=== PATIENT | female | born 1975 | race Caucasian/White ===

== ENCOUNTER 2016-12-17 19:54 | Emergency (ER) | payer SELFPAY ==
[~2016-12-17] VITALS: Ht 149.9 cm; Wt 52.2 kg
[2016-12-17] MEDS ORDERED: IV NS 0.9% 1,000 ML ONE ×2 (19:59→20:06)
[2016-12-17] MEDS ORDERED: IV SET PRIMARY 1 EA INFUS.SET MC ONE ×2 (19:59→20:06)
--- NOTE | 2016-12-17 20:06 | NUR ---
PT BIBA#39 PT WAS FOUND LYING DOWN ON [address] PER EMS, PT STATES SHE HAS BEEN DRINKING TODAY BUT DOES NOT KNOW HOW MUCH, PT WONT GIVE FULL NAME, IV PLACED PRIOR TO ARRIVAL BY EMS, [employer]AL DEGRASSI AT BEDSIDE, PT ON MONITOR, VSS, WILL CONTINUE TO MONITOR.
[2016-12-17] MEDS ORDERED: IV NS 0.9% 1,000 ML BAG IV ONE (20:30)
--- NOTE | 2016-12-17 21:40 | NUR ---
Patient discharged to home in stable condition. Written and verbal after care instructions given. Patient verbalizes understanding of instruction.IV removed. Catheter intact and site benign. Pressure and 4x4 applied to site. No bleeding noted. PT REFUSED HER ACI AND REFUSED TO SIGN DISCHARGE, PT WALKED OUT OF THE ER WITH A STEADY GAIT
[2016-12-17 21:41] VITALS: BP 123/61
== END 2016-12-17 21:45 | disposition home or self-care (01) ==
LOC: ER 19:56
DX: F10.129 Alcohol abuse with intoxication, unspecified (principal); F41.9 Anxiety disorder, unspecified
CPT/HCPCS: 96360; 96361; 99285; A4606; J7030 ×2; Z7610